=== PATIENT | female | born 1990 | race Native Hawaiian/Other Pacific Islander ===

== ENCOUNTER 2017-12-23 22:30 | Emergency (ER) | payer OTHER ==
[~2017-12-23] VITALS: Ht 160 cm; Wt 85.7 kg
[~2017-12-23 22:30] MED LIST: HYDR25TA60 PO
[2017-12-23 22:34] VITALS: TEMP 98.6
[2017-12-24 00:02] VITALS: BP 146/90
== END 2017-12-24 00:08 | disposition home or self-care (01) ==
LOC: ED 22:30
PROC: 2W3QX1Z Immobilization of Right Lower Leg using Splint (ICD-10-PCS; principal; 2017-12-23)
DX: S93.491A Sprain of other ligament of right ankle, initial encounter (principal); Y93.39 Activity, other involving climbing, rappelling and jumping off; Y92.89 Other specified places as the place of occurrence of the external cause
CPT/HCPCS: 96372; 99283; J1885; L4350